=== PATIENT | male | born 1960 | race American Indian/Alaskan Native ===

== ENCOUNTER 2017-05-17 12:41 | Emergency (ER) | payer MEDICAID ==
[2017-05-17 12:49] VITALS: BMI 28.0
[2017-05-17 12:53] VITALS: BP 144/98; PULSE 106; RESP 18; TEMP 97; O2SAT 99
[2017-05-17] MEDS ORDERED: Sodium Chloride 0.9% 500 ML IV STA (13:37)
--- NOTE | 2017-05-17 13:53 | ED PDOC ---
HPI: Male Pain Time Seen by Provider: 05/17/17 13:04 Chief Complaint (Nursing): Abdominal Pain Chief Complaint (Provider): right sided groin pain History Per: Patient History/Exam Limitations: no limitations Onset/Duration Of Symptoms: Days (1.5 years) Additional Complaint(s): Jack Vanegas is a 57 year old male, with no previous medical history, who presents to the ED for the evaluation of right groin pain ongoing for 1.5 years. Patient denies any nausea, vomiting, diarrhea, injury or urinary symptoms. Patient denies seeking medical attention for this in the past and decided today to be evaluated for it, he reports pain to be the same as always. Patient also notes a bump which moves down to his scrotum when standing and moves inwards with laying down. No testicular pain. PMD: none provided Past Medical History Reviewed: Historical Data, Nursing Documentation, Vital Signs Vital Signs: Last Vital Signs Temp 97 F L 05/17/17 12:50 Pulse 106 H 05/17/17 12:50 Resp 18 05/17/17 12:50 BP 144/98 H 05/17/17 12:50 Pulse Ox 99 05/17/17 12:50 - Medical History PMH: No Chronic Diseases - Surgical History Surgical History: No Surg Hx - Family History Family History: States: Unknown Family Hx - Social History Current smoker - smoking cessation education provided: No Alcohol: None Drugs: Denies - Home Medications Home Medications: Ambulatory Orders Medication Instructions Recorded Ibuprofen [Motrin] 600 mg PO TID 7 Days 05/17/17 - Allergies Allergies/Adverse Reactions: Allergies Allergy/AdvReac Type Severity Reaction Status Date / Time LAURA Inhibitors Allergy SWELLING Verified 05/17/17 12:47 Review of Systems ROS Statement: Except As Marked, All Systems Reviewed And Found Negative Gastrointestinal: Negative for: Nausea, Vomiting Genitourinary Male: Positive for: Other (right sided groin pain). Negative for : Dysuria, Frequency, Incontinence, Hematuria, Penile Discharge Physical Exam - Reviewed Nursing Documentation Reviewed: Yes Vital Signs Reviewed: Yes - Physical Exam Appears: Positive for: Non-toxic, No Acute Distress Head Exam: Positive for: ATRAUMATIC, NORMAL INSPECTION, NORMOCEPHALIC Skin: Positive for: Normal Color, Warm, DRY Eye Exam: Positive for: EOMI, Normal appearance, PERRL ENT: Positive for: Normal ENT Inspection Neck: Positive for: Normal, Painless ROM, Supple Cardiovascular/Chest: Positive for: Regular Rate, Rhythm Respiratory: Positive for: CNT, Normal Breath Sounds Gastrointestinal/Abdominal: Positive for: Normal Exam, Bowel Sounds, Soft. Negative for: Tenderness Male Genital Exam: Positive for: inguinal tenderness (right sided with bulging ) , other (cremasteric reflex intact ). Negative for: erythema, testicular tenderness (R), testicular tenderness (L) Back: Positive for: Normal Inspection. Negative for: L CVA Tenderness, R CVA Tenderness Extremity: Positive for: Normal ROM Neurologic/Psych: Positive for: Alert, Oriented - Laboratory Results Result Diagrams: 05/17/17 13:50 05/17/17 13:45 Interpretation Of Abn Labs: no acute - ECG O2 Sat by Pulse Oximetry: 99 (RA) Pulse Ox Interpretation: Normal - CT Scan/US ct Other Rad Studies (CT/US): Read By Radiologist Other Rad Interpretation: hernia - Progress ED Course And Treament: 1703: Stable. AAOx3. Chronic hernia. Fu with pcp and surgeon. No strangulation or incarceration. Tolerated PO. Medical Decision Making Medical Decision Making: Initial Impression: Groin pain Initial Plan: * CT abd & pelvis w/o contrast * labs * IV NS 500 ml at 100 ml/hr * Toradol 15 mg IV * reevaluation 15:50 CT abd & pelvis FINDINGS: There is limited evaluation of the solid organs without the administration of IV contrast. LOWER THORAX: Patchy consolidation at the right lung base. No visible pleural effusion or pneumothorax. LIVER: Unremarkable unenhanced appearance. GALLBLADDER AND BILE DUCTS: Unremarkable unenhanced appearance. PANCREAS: Unremarkable unenhanced appearance. SPLEEN: Unremarkable unenhanced appearance. ADRENALS: Unremarkable unenhanced appearance. KIDNEYS AND URETERS: No hydronephrosis or obstructing renal calculus. BLADDER: The urinary bladder appears unremarkable. REPRODUCTIVE: Prostate gland appears heterogeneous and borderline enlarged. Recommend correlation with PSA. APPENDIX: The appendix is not definitively identified. No secondary signs of acute appendicitis. BOWEL: The stomach is nondistended. Lack of oral contrast limits evaluation for bowel pathology. The bowel loops appear within normal limits of caliber without evidence of intestinal obstruction. Moderate constipation. PERITONEUM: No significant free fluid. No definite free air. LYMPH NODES: No bulky lymphadenopathy identified. VASCULATURE: No aortic aneurysm. BONES: Degenerative changes. OTHER FINDINGS: 9 mm fat containing umbilical hernia. Fat and vessels within a right inguinal hernia. IMPRESSION: Patchy consolidation at the right lung base. Correlate for pneumonia versus atelectasis. 9 mm fat containing umbilical hernia. Right inguinal hernia containing fat and vessels. Borderline enlargement of the prostate gland. Recommend correlation with PSA. Moderate constipation. Scribe Attestation: Documented by Trini Rajput, acting as a scribe for Heriberto Winkler MD. Provider Scribe Attestation: All medical record entries made by the Scribe were at my direction and personally dictated by me. I have reviewed the chart and agree that the record accurately reflects my personal performance of the history, physical exam, medical decision making, and the department course for this patient. I have also personally directed, reviewed, and agree with the discharge instructions and disposition. Disposition - Clinical Impression Clinical Impression: Hernia - Patient ED Disposition Is Patient to be Admitted: No Counseled Patient/Family Regarding: Studies Performed, Diagnosis, Need For Followup, Rx Given - Disposition Referrals: [facility] [Outside] - 05/18/17 Disposition: Routine/Home Disposition Time: 17:04 Condition: STABLE Additional Instructions: Return if not better in 3 days. Prescriptions: Ibuprofen [Motrin] 600 mg PO TID 7 Days Instructions: Inguinal Hernia (ED)
[2017-05-17 14:00] LABS: BASO % 0.5 % (0.0-2.0); EOS # 0.1 K/uL (0.0-0.7); EOS % 1.2 % (0.0-4.0); HEMATOCRIT 39.7 % (35.0-51.0); LYMPH # 1.7 K/uL (1.0-4.3); LYMPH % 21.6 % (20.0-40.0); MEAN CORPUSCULAR HEMOGLOBIN 31.2 pg (27.0-31.0); MEAN CORPUSCULAR HGB CONC 33.9 g/dL (33.0-37.0); MEAN PLATELET VOLUME 8.6 fl (7.2-11.7); MONO # 0.6 K/uL (0.0-0.8); MONO % 7.6 % (0.0-10.0); NEUT # 5.4 K/uL (1.8-7.0); NEUT % 69.1 % (50.0-75.0); NRBC % 0.1 % (0.0-0.0); WHITE BLOOD COUNT 7.9 K/uL (4.8-10.8)
[2017-05-17 14:16] LABS: ALKALINE PHOSPHATASE 58 U/L (38-126); ALT/SGPT 39 U/L (21-72); AST/SGOT 36 U/L (17-59); BILIRUBIN,TOTAL 0.6 mg/dl (0.2-1.3); BLOOD UREA NITROGEN 16 mg/dl (9-20); CALCIUM 9.4 mg/dL (8.4-10.2); CARBON DIOXIDE 32 mmol/L (22-30); CHLORIDE 104 mmol/L (98-107); GFR AFRICAN-AMERICAN > 60; GLUCOSE,RANDOM 73 mg/dL (75-110); SODIUM 146 mmol/l (132-148); TOTAL PROTEIN 8.3 G/DL (6.3-8.2)
--- NOTE | 2017-05-17 15:52 | CT ---
PROCEDURE: CT Abdomen and Pelvis without Oral or IV contrast. HISTORY: R groin pain; hernia COMPARISON: None available. TECHNIQUE: Contiguous axial images of the abdomen and pelvis. No oral or IV contrast administered. Coronal and Sagittal reformats generated and reviewed. Radiation dose: Total exam DLP = 499.51 mGy-cm. This CT exam was performed using one or more of the following dose reduction techniques: Automated exposure control, adjustment of the mA and/or kV according to patient size, and/or use of iterative reconstruction technique. FINDINGS: There is limited evaluation of the solid organs without the administration of IV contrast. LOWER THORAX: Patchy consolidation at the right lung base. No visible pleural effusion or pneumothorax. LIVER: Unremarkable unenhanced appearance. GALLBLADDER AND BILE DUCTS: Unremarkable unenhanced appearance. PANCREAS: Unremarkable unenhanced appearance. SPLEEN: Unremarkable unenhanced appearance. ADRENALS: Unremarkable unenhanced appearance. KIDNEYS AND URETERS: No hydronephrosis or obstructing renal calculus. BLADDER: The urinary bladder appears unremarkable. REPRODUCTIVE: Prostate gland appears heterogeneous and borderline enlarged. Recommend correlation with PSA. APPENDIX: The appendix is not definitively identified. No secondary signs of acute appendicitis. BOWEL: The stomach is nondistended. Lack of oral contrast limits evaluation for bowel pathology. The bowel loops appear within normal limits of caliber without evidence of intestinal obstruction. Moderate constipation. PERITONEUM: No significant free fluid. No definite free air. LYMPH NODES: No bulky lymphadenopathy identified. VASCULATURE: No aortic aneurysm. BONES: Degenerative changes. OTHER FINDINGS: 9 mm fat containing umbilical hernia. Fat and vessels within a right inguinal hernia. IMPRESSION: Patchy consolidation at the right lung base. Correlate for pneumonia versus atelectasis. 9 mm fat containing umbilical hernia. Right inguinal hernia containing fat and vessels. Borderline enlargement of the prostate gland. Recommend correlation with PSA. Moderate constipation.
== END 2017-05-17 17:40 | disposition home or self-care (01) ==
LOC: H.ER 12:41
DX: K40.90 Unilateral inguinal hernia, without obstruction or gangrene, not specified as recurrent (principal); R91.8 Other nonspecific abnormal finding of lung field; K59.00 Constipation, unspecified